=== PATIENT | female | born 1990 | race American Indian/Alaskan Native ===

== ENCOUNTER 2016-12-22 17:21 | Emergency (ER) | payer MEDICAID ==
[2016-12-22 17:59] VITALS: BP 113/74
[2016-12-22 18:44] LABS: Hematocrit 36.1 % (30.3-42.9); Hemoglobin 11.5 gm/dl (10.1-14.3); Mean Corpuscular HGB Conc 32 % (30-34); Mean Corpuscular Hemoglobin 29 pg (28-32); Mean Corpuscular Volume 92 fl (79-97); Platelet Count 278 K/mm3 (140-440); Red Blood Count 3.94 M/mm3 (3.65-5.03); White Blood Count 14.2 K/mm3 (4.5-11.0)
[2016-12-22 19:00] LABS: Anion Gap 17 mmol/L; Blood Urea Nitrogen 10 mg/dL (7-17); Calcium 8.8 mg/dL (8.4-10.2); Carbon Dioxide 23 mmol/L (22-30); Chloride 100.3 mmol/L (98-107); Glucose 115 mg/dL (65-100); Potassium 3.7 mmol/L (3.6-5.0); Sodium 137 mmol/L (137-145)
[2016-12-22 19:26] LABS: Bacteria,Urine 1+ /HPF (Negative); Bilirubin,Urine NEG (Negative); Blood,Urine NEG (Negative); Ketones,Urine TR mg/dL (Negative); Leukocyte Esterase,Urine NEG (Negative); Mucus,Urine 2+ /HPF; Nitrite,Urine NEG (Negative); Urobilinogen,Urine < 2.0 mg/dL (<2.0)
== END 2016-12-22 22:10 | disposition left against medical advice (07) ==
LOC: ED 17:21
DX: O26.892 Other specified pregnancy related conditions, second trimester (principal); N98.9 Complication associated with artificial fertilization, unspecified; Z3A.19 19 weeks gestation of pregnancy; Z53.21 Procedure and treatment not carried out due to patient leaving prior to being seen by health care provider
CPT/HCPCS: 36415; 80048; 81001; 84702; 85027

== ENCOUNTER 2021-04-13 22:17 | Emergency (ER) | payer BC, MEDICAID ==
[2021-04-13 22:31] VITALS: BP 109/66
[2021-04-13] MEDS ORDERED: ONDANSETRON 4 MG/2 ML INJ IV ONE (23:24)
[2021-04-13] MEDS ORDERED: SODIUM CHLORIDE 0.9% 1000 ML 1,000 ML IV ONE (23:24)
[2021-04-13] MEDS ORDERED: MORPHINE 4 MG/1 ML INJ IV ONE (23:24)
--- NOTE | 2021-04-13 23:34 | Emergency Department Report ---
ED Abdominal Pain HPI - General Chief Complaint: Abdominal Pain Stated Complaint: AB/BACK/LEG PAINS Source: patient Mode of arrival: Ambulatory Limitations: No Limitations - History of Present Illness Initial Comments: Patient is a 30-year-old -Cym[place] female with no past medical history who presents to the ED with complaint of acute onset persistent severe diffuse low abdominal pain for the last 2 days. Patient states the pain is sharp, crampy and radiates to the rectal area with nausea. Patient states that her LMP was March 13, 2021. Patient denies vomiting, fever, chills, dizziness, syncope, dysuria, urinary frequency and urgency, vaginal bleeding, vaginal discharge, chest pain, shortness of breath, traumatic injury or low back pain. MD Complaint: abdominal pain (suprapubic), other (pelvic exam radiating to rectum) -: Sudden, days(s) (2) Location: suprapubic Radiation: suprapubic, other (rectum) Migration to: no migration Severity: severe Severity scale (0 -10): 7 Quality: aching, sharp Consistency: constant Improves With: nothing Worsens With: movement Associated Symptoms: denies other symptoms, nausea, anorexia. denies: vomiting, diarrhea, chills, constipation, dysuria, hematemesis, hematochezia, melena, hematuria, syncope, other - Related Data LMP Date: 03/14/21 Previous Rx's Medication Instructions Recorded Last Taken Type Acetaminophen [Tylenol] 500 mg PO Q6HR PRN #30 tablet 04/14/21 Unknown Rx Promethazine [Phenergan] 25 mg PO Q6HR PRN #30 tab 04/14/21 Unknown Rx Allergies Allergy/AdvReac Type Severity Reaction Status Date / Time No Known Allergies Allergy Verified 04/13/21 22:31 ED Review of Systems ROS: Stated complaint: AB/BACK/LEG PAINS Other details as noted in HPI Constitutional: malaise, weakness. denies: chills, fever Eyes: denies: eye pain, eye discharge, vision change ENT: denies: ear pain, throat pain Respiratory: denies: cough, shortness of breath, wheezing Cardiovascular: denies: chest pain, palpitations Endocrine: no symptoms reported Gastrointestinal: abdominal pain (suprapubic), nausea. denies: diarrhea Genitourinary: denies: urgency, dysuria, discharge Musculoskeletal: denies: back pain, joint swelling, arthralgia Skin: denies: rash, lesions Neurological: denies: headache, weakness, paresthesias Psychiatric: denies: anxiety, depression Hematological/Lymphatic: denies: easy bleeding, easy bruising ED Past Medical Hx - Past Medical History Previous Medical History?: No - Surgical History Past Surgical History?: No - Social History Smoking Status: Current Some Day Smoker Substance Use Type: None - Medications Home Medications: Home Medications Medication Instructions Recorded Confirmed Last Taken Type Acetaminophen [Tylenol] 500 mg PO Q6HR PRN #30 tablet 04/14/21 Unknown Rx Promethazine [Phenergan] 25 mg PO Q6HR PRN #30 tab 04/14/21 Unknown Rx ED Physical Exam - General Limitations: No Limitations General appearance: alert, in no apparent distress - Head Head exam: Present: atraumatic, normocephalic, normal inspection - Eye Eye exam: Present: normal appearance, PERRL, EOMI Pupils: Present: normal accommodation - ENT ENT exam: Present: normal exam, normal orophraynx, mucous membranes moist, TM's normal bilaterally, normal external ear exam - Neck Neck exam: Present: normal inspection, full ROM - Respiratory Respiratory exam: Present: normal lung sounds bilaterally. Absent: respiratory distress, wheezes, rales, rhonchi, chest wall tenderness, accessory muscle use, decreased breath sounds - Cardiovascular Cardiovascular Exam: Present: regular rate, normal rhythm, normal heart sounds. Absent: systolic murmur, diastolic murmur, rubs, gallop - GI/Abdominal GI/Abdominal exam: Present: soft, tenderness (Palpable suprapubic tenderness), normal bowel sounds. Absent: guarding, rebound, hyperactive bowel sounds, hypoactive bowel sounds, mass - Extremities Exam Extremities exam: Present: normal inspection, full ROM, normal capillary refill - Back Exam Back exam: Present: normal inspection, full ROM. Absent: tenderness, CVA tenderness (R), CVA tenderness (L), muscle spasm, paraspinal tenderness - Neurological Exam Neurological exam: Present: alert, oriented X3, CN II-XII intact, normal gait, reflexes normal - Psychiatric Psychiatric exam: Present: normal affect, normal mood - Skin Skin exam: Present: warm, dry, intact, normal color. Absent: rash ED Course Vital Signs 04/13/21 22:24 Temperature 98.5 F Pulse Rate 71 Respiratory 18 Rate Blood Pressure 109/66 O2 Sat by Pulse 100 Oximetry ED Medical Decision Making - Lab Data Result diagrams: 04/13/21 23:33 04/13/21 23:33 - Radiology Data Radiology results: report reviewed, image reviewed [facility] [address] [place] [address] Ultrasound Report Signed Patient: ABHIJIT DIAZ MR#: [id number] : 1990 Acct:[id number] Age/Sex: 30 / F ADM Date: 04/13/21 Loc: ED Attending Dr: Ordering Physician: LEON MONTERO Date of Service: 04/14/21 Procedure(s): US OB <= 14 weeks fetus Accession Number(s): [id number] cc: LEON MONTERO EARLY OBSTETRICAL ULTRASOUND INDICATION: pelvic pain; hcg +ve COMPARISON: None pertinent available TECHNIQUE: Transabdominal FINDINGS: Intrauterine gestational sac is seen with double wall sign noted. Estimated gestational age by sac size is 6 weeks 5 days. No pole or yolk sac are noted. No cardiac activity was reported. Right ovary measures 4 cm in length and shows a 2.4 cm simple cyst. Left ovary measures 4.2 cm in length and shows a minimal follicular-type cysts. Flow seen in both ovaries. Minimal free fluid is seen. IMPRESSION: Intrauterine gestational sac is seen but viability is not conf irmed. Recommend follow- up. Signer Name: Niraj Hill MD Signed: 04/14/2021 2:44 AM Workstation Name: [id number] Transcribed By: GJ Dictated By: Niraj Hill MD Electronically Authenticated By: Niraj iHll MD Signed Date/Time: 04/14/21243 DD/ 0 TD/TT: - Medical Decision Making This is a 30-year-old -[place]ym[place] female with no past medical history who presents to the ED with complaint of acute onset persistent severe diffuse low abdominal pain for the last 2 days. Patient states the pain is sharp, crampy and radiates to the rectal area with nausea. Patient states that her LMP was March 13, 2021. In the ED, patient is alert and oriented x3 and is not in any distress. Patient is hemodynamically stable. Lab test results were reviewed and showed acute leukocytosis of 14,800, [place] [address] and BUN of 19. The patient received normal saline 1 L IV bolus x1 and also was treated for pain in the ED. Transvaginal ultrasound showed intrauterine gestational sac with double wall sign noted. Estimated gestational age by sac size is 6 weeks 5 days. No pole or yolk sac are noted. No cardiac activity was reported. On reevaluation, patient's pain is well controlled medications. Patient will discharge home and advised to take Tylenol as needed for pain, and to follow-up with [facility] physician in 5 to 7 days for reevaluation. Patient was advised return to the ED immediately if symptoms get worse. Patient was also encouraged to observe and maintain a complete pelvic rest until she follows up with her [facility] physician as advised. - Differential Diagnosis Colitis; diveriticulitis; ; PID; fibroids; dysmenorrhea; abscess Critical care attestation.: If time is entered above; I have spent that time in minutes in the direct care of this critically ill patient, excluding procedure time. ED Disposition Clinical Impression: Acute bilateral lower abdominal pain, Abdominal pain during in first trimester, Intrauterine , incidental Disposition: 01 HOME / SELF CARE / HOMELESS Is pt being admited?: No Does the pt Need Aspirin: No Condition: Stable Instructions: Abdominal Pain (ED), Abdominal Pain During , [id number], First Trimester of , [id number] Additional Instructions: All lab test results were reviewed and are all nonactionable except for hCG quant which was positive for . Transvaginal ultrasound showed intrauterine with a sac of approximately 6 weeks and 5 days. There was however no heart tones at this time possibly due to the fact that the is still too early to characterize. Therefore maintain a complete pelvic rest, with no heavy lifting or strenuous activities. Take Tylenol as needed for pain and follow-up with your [facility] physician in 3 to 5 days for reevaluation. Return to the ED immediately if symptoms get worse. Prescriptions: Acetaminophen [Tylenol] 500 mg PO Q6HR PRN #30 tablet PRN Reason: Pain , Severe (7-10) Promethazine [Phenergan] 25 mg PO Q6HR PRN #30 tab PRN Reason: Nausea Referrals: BELKIS ARROYO MD [Staff Physician] - 3-5 Days Forms: Work/School Release Form(ED) Time of Disposition: 02:59 Print Language: AUSTRALIAN
[2021-04-14 00:25] LABS: Alanine Aminotransferase 25 units/L (7-56); Albumin 3.9 g/dL (3.9-5); BUN/Creatinine Ratio 21; Blood Urea Nitrogen 19 mg/dL (7-17); Calcium 9.5 mg/dL (8.4-10.2); Hemolysis Index 2
[2021-04-14 00:33] LABS: Basophils # (Auto) 0.1 K/mm3 (0.0-0.1); Basophils % (Auto) 0.6 % (0.0-1.8); Eosinophils # (Auto) 0.1 K/mm3 (0.0-0.4); Eosinophils % (Auto) 0.5 % (0.0-4.3); Hematocrit 33.6 % (30.3-42.9); Lymphocytes # (Auto) 3.2 K/mm3 (1.2-5.4); Lymphocytes % (Auto) 21.7 % (13.4-35.0); Mean Corpuscular HGB Conc 33 % (30-34); Mean Corpuscular Volume 88 fl (79-97); Monocytes # (Auto) 0.9 K/mm3 (0.0-0.8); Monocytes % (Auto) 5.8 % (0.0-7.3); Platelet Count 205 K/mm3 (140-440); Red Blood Count 3.83 M/mm3 (3.65-5.03); Red Cell Distribution Width 13.3 % (13.2-15.2)
[2021-04-14 02:15] LABS: Bilirubin,Urine NEG (Negative); Blood,Urine NEG (Negative); Color,Urine Yellow (Yellow); Hyaline Casts,Urine 1 /LPF; Mucus,Urine FEW /HPF; Protein,Urine <15 mg/dL mg/dL (Negative); Urobilinogen,Urine < 2.0 mg/dL (<2.0)
--- NOTE | 2021-04-14 02:48 | Ultrasound Report ---
EARLY OBSTETRICAL ULTRASOUND INDICATION: pelvic pain; hcg +ve COMPARISON: None pertinent available TECHNIQUE: Transabdominal FINDINGS: Intrauterine gestational sac is seen with double wall sign noted. Estimated gestational age by sac size is 6 weeks 5 days. No pole or yolk sac are noted. No cardiac activity was reported . Right ovary measures 4 cm in length and shows a 2.4 cm simple cyst. Left ovary measures 4.2 cm in etrry gth and shows a minimal follicular-type cysts. Flow seen in both ovaries. Minimal free fluid is seen. IMPRESSION: Intrauterine gestational sac is seen but viability is not confirmed. Recommend follow-up. Signer Name: Niraj Hill MD Signed: 04/14/2021 2:44 AM Workstation Name: [id number]
== END 2021-04-14 03:10 | disposition home or self-care (01) ==
LOC: ED 22:17
DX: O26.891 Other specified pregnancy related conditions, first trimester (principal); R10.31 Right lower quadrant pain; R10.32 Left lower quadrant pain; Z3A.01 Less than 8 weeks gestation of pregnancy; F17.200 Nicotine dependence, unspecified, uncomplicated
CPT/HCPCS: 36415; 76801; 80053; 81001; 84702; 84703; 85025; 96361; 96374; 96375; 99284; J2270; J2405; J7030